=== PATIENT | female | born 1970 | race Caucasian/White ===

== ENCOUNTER → 2023-06-01 06:33 | Day surgery (SDC) | payer OTHER, SELFPAY | LOC: GI 06:33 | PROVIDERS: ATTENDING PHYSICIAN Internal Medicine Gastroenterology | DX: K51.00 Ulcerative (chronic) pancolitis without complications (principal); D12.3 Benign neoplasm of transverse colon; K51.40 Inflammatory polyps of colon without complications; K63.89 Other specified diseases of intestine; K64.0 First degree hemorrhoids | CPT/HCPCS: 45380; 88305; 88342 ==

== ENCOUNTER 2023-07-14 06:10 | Emergency (ER) | payer OTHER, SELFPAY ==
[2023-07-14 06:11] VITALS: BP 135/83
[2023-07-14 06:35] LABS: % Eosinophils 1.7 % (0-6); % Immature Granulocytes 0.5 % (0-0.5); % Lymphocytes 14.2 % (20.5-51.1); % Neutrophils 74.6 % (42.2-75.2); Absolute Basophils 0.1 10^3/uL (0-0.2); Absolute Eosinophils 0.2 10^3/uL (0-0.7); Absolute Lymphocytes 1.3 10^3/uL (1.2-3.4); Absolute Monocytes 0.7 10^3/uL (0.1-0.6); Absolute Neutrophils 6.6 10^3/uL (1.4-6.5); Hematocrit 41.7 % (37.0-47.0); Hemoglobin 14.4 g/dL (12.0-16.0); Mean Corp Hgb Conc. 34.5 g/dL (33.0-37.0); Mean Corpuscular Hgb 30.3 pg (27.0-31.0); Mean Corpuscular Volume 87.8 fL (81.0-99.0); Mean Platelet Volume 8.3 fL (7.4-10.4); Nucleated Red Blood Cells % 0 %; Platelet Count 358 10^3/uL (130-400); Red Blood Cell Count 4.75 10^6/uL (4.20-5.40); Red Cell Dist. Width 13.6 % (11.5-14.5); White Blood Cell Count 8.8 10^3/uL (4.8-10.8)
[2023-07-14 06:47] LABS: HCG, Serum Qualitative Screen Negative
[2023-07-14 06:54] LABS: ALT (SGPT) 14 U/L (0-35); AST (SGOT) 21 U/L (14-36); Albumin 4.2 g/dl (3.5-5.0); Alkaline Phosphatase 85 U/L (38-126); Blood Urea Nitrogen 11 mg/dl (7-17); Calcium 9.3 mg/dl (8.4-10.2); Carbon Dioxide 24 mmol/L (22-30); Chloride 105 mmol/L (98-107); Glucose 112 mg/dl (70-99); Lipase 113 U/L (23-300); Sodium 138 mmol/L (135-145); Total Bilirubin 0.8 mg/dl (0.2-1.3); Total Protein 7.4 g/dl (6.3-8.2); eGFR > 60.00
--- NOTE | 2023-07-14 07:50 | ED.GENMED ---
History of Present Illness
General
Chief Complaint: Abdominal Pain
Source: patient
Exam Limitations: none
Time Seen by Provider: 07/14/23 07:23
Travel History
Have you had any contact with someone who has COVID-19?: No
Do you have any symptoms of coronavirus? Fever > 100 degrees, chills, cough, shortness of breath, sore throat, loss of taste or smell, muscle aches, or headache?: No
History of Present Illness
History of Present Illness:
52-year-old female with history of ulcerative colitis presents with 3 days worth of left-sided abdominal cramping with frequent loose stools. She notes some blood on the paper when she wipes but the stool itself is not bloody. She denies fever or
vomiting. She was on mesalamine pills for her colitis however she was having trouble swallowing them. 2 days ago she was switched to mesalamine suppository. Since then she has had increased left-sided abdominal pain cramping in nature. She also
notes loose stools. No fevers. She has trouble keeping anything down or in. She feels very dry at this point. No other complaints at this time
Past History
Past History
ED Past Medical History: Other (Ulcerative colitis, mitral valve prolapse)
ED Past Surgical History: None
Social History
Tobacco: Non-smoker
Personal:
Living: with family
Phy Exam
Physical Exam
Physical Exam:
General: Well-appearing female no acute respiratory distress
HEENT: Normal neck atraumatic mucosa dry neck is supple
Heart: Regular rate and rhythm no murmurs
Lungs: Clear no wheeze or rales
Abdomen: Soft tender to the left mid abdomen no guarding or rebound normal bowel sounds nondistended
Extremities: No cyanosis
Skin warm no rash
Course
Orders/Labs/Results
Orders:
Orders
07/14/23 06:14
Test Result ONCE
07/14/23 06:18
Complete Blood Count/With Diff Urgent
Comprehensive Metabolic Panel Urgent
HCG, Serum Qualitative Screen Urgent
Lipase Urgent
07/14/23 07:47
0.9% Sodium Chloride 1000 ml [Nss] 1,000 ml IV BOLUS
07/14/23 08:20
Iohexol [Omnipaque] See Protocol PO NOW STA
07/14/23 08:24
CT Abd/pel Without Iv Or Oral Urgent
Comment:
Reason For Exam: left sided abdominal pain, severe dye allergy
07/14/23 09:56
STOOL [C difficile Antigen & Toxins] Urgent
RAN Source: Feces/Stool
Specimen Description:
Date Specimen was Collected: 07/14/23
Time Specimen was Collected: 09:54
Stool Culture Urgent
RAN Source: Feces/Stool
Specimen Description:
Date Specimen was Collected: 07/14/23
Time Specimen was Collected: 09:54
07/14/23 11:40
Add On- LAB Urgent
Tests Added?: stool calprotectin
07/14/23 11:42
Add On- LAB Urgent
Tests Added?: crp
Abnormal Lab Results
07/14/23
06:18
Absolute Neuts (auto) 6.6 H 10^3/uL
(1.4-6.5)
Absolute Monos (auto) 0.7 H 10^3/uL
(0.1-0.6)
Lymphocytes % 14.2 L %
(20.5-51.1)
Glucose 112 H mg/dl
(70-99)
07/14/23 06:18
07/14/23 06:18
Vital Signs
Initial and Last Documented VS:
Initial Vital Signs
Temp Pulse Resp BP Pulse Ox
98 F 88 16 135/83 99
07/14/23 06:11 07/14/23 06:11 07/14/23 06:11 07/14/23 06:11 07/14/23 06:11
Last Documented Vital Signs
Temp Pulse Resp BP Pulse Ox
98 F 66 16 128/85 97
07/14/23 06:11 07/14/23 10:09 07/14/23 10:09 07/14/23 10:09 07/14/23 10:09
MDM/Problems Addressed
Differential Diagnosis Includes:
Abdominal pain with history of ulcerative colitis. Patient feels this is very similar to prior flares of her colitis. Which to a suppository may have triggered this flare. Labs done through triage were reviewed and are negative for acute finding.
Consider imaging however patient has been prone to this in the past. Will hydrate. Reached out to GI for recommendations specifically they feel steroids are necessary.
*Critical Care Note
Total Time (30-74mins, 75-104mins- exclusive of procedures): Not Applicable
Update Note
Update Note:
Discussed case with on-call GI who recommended CT scan. Patient has anaphylaxis to oral contrast cannot tolerate this. This was done without contrast. CT scan showed possible changes consistent with ulcerative colitis but otherwise no significant
findings. Labs reviewed without significant findings. Spoke with the patient's GI physician of record who recommended waiting for stool cultures prior to initiation of steroid medication. Patient was hydrated here and does feel some improvement.
Recommend close follow-up. The office will call her in the morning follow-up. Stable for discharge
ED Attending Note
-
Portions of this chart may have been created with voice recognition software.� Occasional wrong word or��sound alike� substitutions may have occurred due to the inherent limitations of voice recognition software.
Discharge Plan
Departure
Patient Disposition: Home (Routine Discharge)
Date of Disposition: 07/14/23
Time of Disposition: 11:56
Patient with high blood pressure during this ER visit?: No
Discharge Problem:
Abdominal pain
Instructions: Abdominal Pain
Prescriptions:
No Action
simethicone [Gas Relief 80 (simethicone)] 80 mg Tablet,Chewable
80 mg PO TIDPRN PRN (Reason: gas) Qty: 7 0RF
acetaminophen 325 mg Tablet
650 mg PO Q4HPRN PRN (Reason: Mild Pain / Temp > 101) 14 Days Qty: 60 0RF
amoxicillin-pot clavulanate 875-125 mg tablet
1 tab PO Q12H 4 Days Qty: 8 0RF
ibuprofen 600 mg tablet
600 mg PO Q8H PRN (Reason: pain) 5 Days Qty: 30 0RF
amoxicillin-pot clavulanate 875-125 mg tablet
1 tab PO BID Qty: 14 0RF
Referrals:
David Lutz, DO [Family Provider] -
Activity Restrictions/Additional Instructions:
As discussed, there are stool cultures pending. You should receive a call if these are positive. The GI office will call you tomorrow morning for follow-up. Return here for worsening symptoms otherwise follow-up as planned with GI
Interventions
Interventions:
*Risk Screen - Suicide Last Done: 07/14/23 06:11
*General Assessment Last Done: 07/14/23 06:11
*Neglect/Abuse Screening Last Done: 07/14/23 06:11
*ED COVID-19 Vaccine History Last Done: 07/14/23 07:37
CK-Xcklul-Tzgrzcjkmq Assessment Last Done: 07/14/23 07:38
Discharge Date and Time
Print Language: INDIAN
[2023-07-14] MEDS: NSS 1000 IV (08:03)
[2023-07-14 08:06] VITALS: BP 117/72
[2023-07-14 10:08] VITALS: BP 128/85
[2023-07-14 10:09] VITALS: BP 128/85
[2023-07-14 12:19] VITALS: BP 125/73
[2023-07-19 17:26] LABS: Calprotectin, Fecal >3000 ug/g (<=49)
== END 2023-07-14 12:24 | disposition home or self-care (01) ==
LOC: EMR 06:10
PROVIDERS: Emergency Medicine; Physician Assistant; EMERGENCY PHYSICIAN Emergency Medicine; FAMILY PHYSICIAN Family Medicine
DX: R10.30 Lower abdominal pain, unspecified (principal); K51.90 Ulcerative colitis, unspecified, without complications; I34.1 Nonrheumatic mitral (valve) prolapse
CPT/HCPCS: 99284; 96360; 74176; 80053; 83690; 83993; 84703; 85025; 86140; 87045; 87046; 87324; 87427; 87449

== ENCOUNTER → 2024-01-27 06:21 | Day surgery (SDC) | payer BC, SELFPAY | LOC: GI 06:21 | PROVIDERS: ATTENDING PHYSICIAN Internal Medicine Gastroenterology | DX: K51.00 Ulcerative (chronic) pancolitis without complications (principal); K64.0 First degree hemorrhoids; K51.40 Inflammatory polyps of colon without complications; D12.3 Benign neoplasm of transverse colon; D12.4 Benign neoplasm of descending colon | CPT/HCPCS: 45385; 45380; 88305 ==